=== PATIENT | female | born 1940 | race Caucasian/White ===

== ENCOUNTER 2019-01-10 07:00 | Inpatient (IN) ==
[2019-01-10] MEDS ORDERED: REGLAN ONE (13:48)
[2019-01-10] MEDS ORDERED: PEPCID ONE (13:48)
[2019-01-10] MEDS ORDERED: COLACE ONE (13:48)
[2019-01-10] MEDS ORDERED: LYRICA ONE (13:49)
[2019-01-10] MEDS ORDERED: QUELICIN (DOSE) ONE (13:49)
[2019-01-10] MEDS ORDERED: CELEBREX ONE (13:49)
[2019-01-10] MEDS ORDERED: DIPRIVAN 1% ONE (13:49)
[2019-01-10] MEDS ORDERED: XYLOCAINE-MPF 2% ONE (13:49)
[2019-01-10] MEDS ORDERED: KEFZOL 1 GM/D5W 2 GM/100 ML IVPB ONE (13:49)
[2019-01-10] MEDS ORDERED: ROBINUL ONE ×2 (13:49→16:41)
[2019-01-10] MEDS ORDERED: LR 1,000 ML ONE (13:49)
[2019-01-10] MEDS ORDERED: SUFENTA ONE (14:53)
--- NOTE | 2019-01-10 15:03 | EKG Report ---
Test Performed on : 01/10/2019 2:56:40 PM Test Reason : preop Blood Pressure : / mmHG Vent. Rate : 061 BPM Atrial Rate : 061 BPM P-R Int : 204 ms QRS Dur : 076 ms QT Int : 412 ms P-R-T Axes : 047 014 023 degrees QTc Int : 414 ms Normal sinus rhythm. Normal ECG No previous ECGs available Confirmed by Fidel LANDERS, P.J.M ([id number]) on 01/10/2019 8:01:42 PM
[2019-01-10 15:19] LABS: BASO# 0.02 X1000 (0.0-0.2); BASO% 0.2 % (0.0-0.8); EOS# 0.09 X1000 (0.0-0.7); HEMOGLOBIN 9.8 g/dL (12.0-16.0); IMM GRAN% 1.2 % (0.0-0.5); LYMPH# 1.03 X1000 (1.2-3.4); LYMPH% 11.9 % (20.5-51.1); MCH 30.3 PG (27-31); MCHC 30.6 g/dL (33-37); MCV 99.1 FL (81-99); MONO# 0.67 X1000 (0.11-0.59); MONO% 7.7 % (1.7-9.3); MPV 9.4 FL (7.4-10.4); NEUT# 6.75 X1000 (1.4-6.5); PLT 332 X1000 (130-400); RBC 3.23 XMIL (4.2-5.4); RDW 15.3 % (11.5-14.5); WBC 8.66 X1000 (4.8-10.8)
[2019-01-10] MEDS ORDERED: EXPAREL 1.3% ONE (15:23)
[2019-01-10] MEDS ORDERED: CYKLOKAPRON 1,000 MG/NS 1,000 MG/100 ML IVPB ONE (15:23)
[2019-01-10] MEDS ORDERED: MARCAINE 0.5% PF ONE (15:23)
[2019-01-10] MEDS ORDERED: TORADOL ONE (15:23)
[2019-01-10] MEDS ORDERED: SODIUM CHLORIDE 0.9% ONE (15:23)
[2019-01-10] MEDS ORDERED: DURAMORPH ONE (15:23)
[2019-01-10 15:26] LABS: INR 1.05; PROTIME 13.8 Seconds (11.0-16.0)
[2019-01-10 15:47] LABS: CALCIUM 8.9 mg/dL (8.8-10.2); CREATININE 1.2 mg/dL (0.5-0.9); POTASSIUM 4.7 mmol/L (3.5-5.1)
[2019-01-10] MEDS ORDERED: VANCOMYCIN ONE (16:03)
[2019-01-10] MEDS ORDERED: ZOFRAN ONE (16:48)
[2019-01-10] MEDS ORDERED: DECADRON ONE (16:48)
[2019-01-10 16:52] LABS: URINE SOURCE CATH
[2019-01-10 17:10] LABS: BILIRUBIN URINE NEGATIVE (NEGATIVE); BLOOD URINE NEGATIVE (NEGATIVE); COLOR YELLOW; GLUCOSE URINE NEGATIVE (NEGATIVE); KETONE URINE NEGATIVE (NEGATIVE); LEUKOCYTES URINE NEGATIVE (NEGATIVE); NITRITE URINE NEGATIVE (NEGATIVE); PH URINE 5.5; PROTEIN URINE TRACE mg/dL (NEGATIVE); SP GRAVITY URINE 1.019; TURBIDITY URINE CLEAR (CLEAR); UROBILINOGEN URINE 2 mg/dL (NORMAL)
[2019-01-10 17:11] LABS: UR EPITHELIAL CELLS <10 /HPF (<10); URINE BACTERIA NEGATIVE /HPF; URINE RBC <10 /HPF (<10); URINE WBC <10 /HPF (<10)
[2019-01-10] MEDS: DILAUDID ONE ×5 (17:47→18:25)
[2019-01-10] MEDS ORDERED: NS 1,000 ML ONE (17:54)
[2019-01-10] MEDS ORDERED: OXY IR ONE (17:55)
[2019-01-10] MEDS ORDERED: ZOFRAN PO PRN (18:00)
[2019-01-10] MEDS ORDERED: MORPHINE IV PRN ×3 (18:00)
[2019-01-10] MEDS ORDERED: MILK OF MAGNESIA PO PRN (18:00)
[2019-01-10] MEDS ORDERED: OXY IR PO PRN ×2 (18:00)
--- NOTE | 2019-01-10 19:27 | Diag Imaging Result Doc PS360 ---
EXAM: SHOULDER 1 VIEW LEFT - 01/10/2019 HISTORY: post op reverse total shoulder TECHNIQUE: Portable left shoulder two views COMPARISON: 01/01/2019 FINDINGS: There are postsurgical changes of recent total shoulder prosthesis placement. Alignment of the prosthesis appears satisfactory. There are no complicated features identified. IMPRESSION: Satisfactory postoperative images. Electronically signed by Bakari Gant 01/10/2019 7:25 PM
[2019-01-10] MEDS ORDERED: FLU VACCINE IM ONE (19:40)
[2019-01-10] MEDS ORDERED: PNEUMOVAX 23 IM ONE (20:30)
[2019-01-10] MEDS: COLACE PO SCH (20:52)
[2019-01-10] MEDS: PERIDEX MT SCH (20:52)
[2019-01-10] MEDS: NS 1,000 ML IV SCH (20:52)
[2019-01-10] MEDS: TYLENOL PO SCH ×2 (20:52→23:09)
[2019-01-10] MEDS: NAMENDA PO SCH (20:52)
[2019-01-10] MEDS: VOLTAREN PO SCH (21:35)
[2019-01-10] MEDS: KEFZOL 2 GM/D5W 2 GM/50 ML IVPB IV SCH (23:09)
[2019-01-11] MEDS: TYLENOL PO SCH ×2 (06:15→14:51)
[2019-01-11] MEDS: SYNTHROID PO SCH (06:15)
[2019-01-11 06:24] LABS: HEMATOCRIT 29.3 % (37.0-47.0)
[2019-01-11 06:57] LABS: CALCIUM 8.2 mg/dL (8.8-10.2); CREATININE 1.4 mg/dL (0.5-0.9); POTASSIUM 4.9 mmol/L (3.5-5.1)
--- NOTE | 2019-01-11 07:42 | OPERATIVE NOTE ---
PROCEDURE DATE: 01/10/2019 PREOPERATIVE DIAGNOSIS: Left comminuted proximal humeral fracture. POSTOPERATIVE DIAGNOSIS: Left comminuted proximal humeral fracture. PROCEDURE: Left reverse shoulder arthroplasty with DePuy Delta extend long cemented stem with a 38 + 9 Humeral cup, 38 + 8 mm lateralized eccentric Glenosphere, standard Metaglene. SURGEON: Dajuan Edmond MD FIRST ASSISTANTS: JEREMIAH Mathias, who was necessary for retraction and manipulation of the extremity during the case. SECOND PROJECT MANAGEMENT: Dennis Almendarez RN. ANESTHESIA: General. IV FLUIDS: 1900 mL lactated Ringer's. ESTIMATED BLOOD LOSS: 150 mL. COMPLICATIONS: None. INDICATION: The patient is a 78-year-old female who is status post fall approximately a week and a half ago. She presented. X-rays revealed cystic significantly comminuted proximal humeral fracture with extension in the proximal shaft large butterfly fragments. Given the patient's findings, recommendation to proceed with left reverse shoulder arthroplasty was offered. Risks and benefits of surgery were explained, including the risks of anesthesia, , bleeding, infection, pain, postop stiffness, nerve injury, blood clots, and other imponderables. All questions were answered. The patient and family wished to proceed with surgery. DESCRIPTION OF PROCEDURE: The patient was taken to the operating room and placed supine on the operating table. Once adequate anesthesia was obtained, the patient was placed in semi-Reynoso beach-chair position. The left shoulder was subsequently prepped and draped in usual sterile fashion. A standard deltopectoral incision made with a skin knife. Hemostasis was obtained using electrocautery. The deltopectoral interval was then developed. The fracture was identified. Patient had a large comminuted butterfly fragment which was removed anteriorly. Attention was then turned to the humeral head which was removed without difficulty with sharp dissection. The greater and lesser tuberosity fragments were removed as well, sharply dissected and removed. The patient had a very large butterfly fragment involving the posterior medial aspect as well with extension into the proximal 1/3 of the shaft, had significant soft tissue attached and then was left in place. After this had been performed, attention was then turned to the glenoid. The circumferential dissection was performed with a deep knife. A guide pin was then placed. Reaming was then conducted. The central hole was then dilated. Copious irrigation was performed with antibiotic pulsatile lavage. A standard Metaglene was impacted into position. Two locking screws and 2 nonlocking screws were placed. Good purchase was obtained. The wound was copiously irrigated once again. The 38+ 8 mm lateralized eccentric Glenosphere was then placed with the eccentricity placed inferiorly. After this had been performed, attention was then turned to the shaft. The reaming was then conducted into the shaft in preparation for a size 8 long cemented stem. After this had been performed, the stem was placed into position to determine the appropriate height. C-arm visualization was used to confirm no further extension of the fracture. After this had been confirmed with height, vancomycin was mixed with cement on the back table. Copiously irrigated the intramedullary canal. After cement has been prepared, it was then impacted into the shaft. The stem was then placed in approximately 15 to 20 degrees of retroversion at the appropriate height and held in position while the cement cured. After the cement had cured, C-arm visualization was used to confirm good positioning of the stem. After this had been confirmed, the trial cup size and 38 + 9 humeral cup was determined to be the correct size. The trial cup was removed. The wound was copiously irrigated once again with antibiotic pulsatile lavage. A 38 + 9 humeral cup was placed and the shoulder was reduced, carried through range of motion and good range of motion and good stability. The wound was copiously irrigated once again with antibiotic pulsatile lavage. Exparel was placed in deep soft tissue, as well as subcutaneous tissue. Final irrigation was then performed once again. A 2-0 Vicryl was then used to repair the subcutaneous tissue, followed by a running 2- 0 Prolene. Benzoin and Steri-Strips were applied. Adaptic, 4x4s, ABD pad, and tape were applied to the left shoulder followed by a shoulder immobilizer. All counts were correct. Patient tolerated the procedure well, transferred to the recovery room in stable condition. cc: Dajuan Edmond MD MTDD
[2019-01-11] MEDS: KEFZOL 2 GM/D5W 2 GM/50 ML IVPB IV SCH (08:17)
[2019-01-11] MEDS: COLACE PO SCH ×2 (08:18→20:42)
[2019-01-11] MEDS: COZAAR PO SCH (08:18)
[2019-01-11] MEDS: PERIDEX MT SCH ×2 (08:18→20:42)
[2019-01-11] MEDS: ARICEPT PO SCH (08:18)
[2019-01-11] MEDS: VOLTAREN PO SCH ×2 (08:18→20:42)
[2019-01-11] MEDS: NAMENDA PO SCH ×2 (08:18→20:42)
[2019-01-11] MEDS: REMERON PO SCH (08:18)
--- NOTE | 2019-01-11 11:24 | Diag Imaging Result Doc PS360 ---
EXAM: CHEST-1 VIEW 01/11/2019 HISTORY: rehab TECHNIQUE: AP portable upright at 1112 COMMENT: The inspiration is less optimal than on 11/21/2013. The heart size is the upper limits of normal. There is no definite evidence of acute pulmonary disease. IMPRESSION: Poor inspiration. Electronically signed by Olayinka Jones 01/11/2019 11:22 AM
--- NOTE | 2019-01-11 14:00 | ORTHOPAEDICS PROGRESS NOTE ---
DATE: 01/11/2019 SUBJECTIVE: Ms. Abarca is a 78-year-old female who is status post day 1 of a left reverse total shoulder arthroplasty due to a proximal humerus fracture. She is resting comfortably in bed at this time, and her son is at bedside. She has no complaints at this time, though she is slightly confused which is her baseline due to her underlying dementia. OBJECTIVE: Ms. Abarca is resting in bed at this time. Her dressing is intact to her left shoulder. It is clean and dry. She does have some bruising to her upper arm, which is expected after the surgery. She is complaining of some numbness to her 3rd, 4th, and 5th digits on her left hand. Her hand grasp is strong and equal. She has full range of motion of her hand. LABORATORY: Labs back this morning, and her hemoglobin and hematocrit is 9.0 and 29.3 which is only very slightly decreased from the previous day when it was 9.8 and 32.0. Her creatinine is 1.4 this morning, which is increased slightly from 1.2 yesterday. VITAL SIGNS: Her vital signs were stable through the night last night, and she remained afebrile. She was not tachycardic. ASSESSMENT: Status post day 1 of a left reverse total shoulder arthroplasty due to a proximal humerus fracture. PLAN: The plan is for Ms. Abarca to go to an inpatient rehab facility due to not having anyone at home who can take her to physical therapy as well as her underlying dementia. We are afraid if she goes home without anyone staying with her that she will end up using the shoulder as she has already asked while being here in the hospital about taking the shoulder immobilizer off, and trying to eat her breakfast with this hand. Case Management will discuss with her son today rehab placement. Dictated by JEREMIAH Mathias for Dajuan Edmond MD cc: MD SONYA Romo
[2019-01-11] MEDS: ULTRAM PO PRN ×2 (14:51→23:44)
[2019-01-11] MEDS: NS 1,000 ML IV SCH ×2 (20:47→20:48)
[2019-01-11] MEDS: HALDOL IV PRN (21:48)
[2019-01-12] MEDS: HALDOL IV PRN (01:35)
[2019-01-12] MEDS: TYLENOL PO SCH ×6 (02:41→22:43)
[2019-01-12] MEDS: SYNTHROID PO SCH (06:04)
[2019-01-12 07:07] LABS: HEMATOCRIT 25.7 % (37.0-47.0); HEMOGLOBIN 7.9 g/dL (12.0-16.0)
[2019-01-12 07:24] LABS: CALCIUM 7.7 mg/dL (8.8-10.2); CREATININE 1.3 mg/dL (0.5-0.9); POTASSIUM 4.7 mmol/L (3.5-5.1)
[2019-01-12] MEDS: VOLTAREN PO SCH ×2 (10:37→20:22)
[2019-01-12] MEDS: ARICEPT PO SCH (10:37)
[2019-01-12] MEDS: COLACE PO SCH ×2 (10:38→20:22)
[2019-01-12] MEDS: COZAAR PO SCH (10:38)
[2019-01-12] MEDS: NAMENDA PO SCH ×2 (10:38→20:22)
[2019-01-12] MEDS: REMERON PO SCH (10:39)
[2019-01-12] MEDS: PERIDEX MT SCH ×2 (10:39→20:22)
[2019-01-12] MEDS: NS 1,000 ML IV SCH ×2 (10:45→23:27)
--- NOTE | 2019-01-12 11:37 | DISCHARGE SUMMARY ---
ADMISSION DATE: 01/10/2019 DISCHARGE DATE: 01/13/2019 ADMITTING DIAGNOSIS: Left comminuted proximal humerus fracture. DISCHARGE DIAGNOSIS: Left comminuted proximal humeral fracture, status post right reverse total shoulder arthroplasty. PROCEDURES: On 01/10/2019: Dr. Edmond performed a left reverse total shoulder arthroplasty. HOSPITAL COURSE: Ms. Abarca is a 78-year-old female with past medical history of dementia and hypertension, who presented to the office after an injury that she sustained on 01/01/2019 when she tripped and fell, causing pain to her left arm. An x-ray revealed a severely comminuted fracture of the left proximal humerus. Dr. Edmond discussed with the family and patient doing a left reverse total shoulder arthroplasty, and they wish to proceed at this time. She was taken to the operating room where satisfactory anesthesia was obtained. She tolerated the procedure well and was transferred to the recovery room. After satisfactory recovery, she was transferred to [address] [place] [address] where she has had an uneventful postoperative course. She has been mobilizing with physical therapy while in the hospital. She has up until this point lives at home alone, and her son states that she does not have anyone who is there with her who can help get her to and from therapy, as well as she is having confusion now. It was decided that she would be best served going to inpatient rehab for her physical therapy. LAB STUDIES: Her hemoglobin and hematocrit H has decreased to 7.9 and 25.7; however, patient has remained asymptomatic and she is not tachycardic at this time. Her creatinine has improved from 1.4 yesterday to 1.3 today, so it is trending down. VITAL SIGNS: Her vital signs are most recently temperature of 97.4 degrees, heart rate of 70, blood pressure of 114/87, and she is 96% on room air. DISCHARGE MEDICATIONS: Diclofenac 50 mg p.o. b.i.d., donepezil 10 mg p.o. daily, Synthroid 100 mcg p.o. daily, losartan 50 mg p.o. daily, memantine hydrochloride 10 mg p.o. b.i.d., mirtazapine 30 mg p.o. daily, and Tylenol 500 mg p.o. b.i.d. She will also be given milk of magnesia to use p.r.n., Zofran 4 mg p.o. q. 6 hours p.r.n., and tramadol 50 mg 1 to 2 tablets p.o. q. 6 hours p.r.n. pain. DISCHARGE DISPOSITION: Ms. Abarca will be going to [facility] for inpatient physical therapy. She is going to continue to work on mobilization. She is going to follow up in office once she is discharged from rehabilitation. They can remove her sutures in 10 to 14 days. Signs of postoperative infection will include redness and swelling or discharge from the site. She can shower, but no tub bath. Dictated by JEREMIAH Mathias for Dajuan Edmond MD cc: Dajuan Edmond MD
--- NOTE | 2019-01-12 14:02 | ORTHOPAEDICS PROGRESS NOTE ---
DATE: 01/12/2019 SUBJECTIVE: The patient is a 78-year-old female who is status post left reverse shoulder arthroplasty for comminuted fracture. The patient is currently resting comfortably. She has the expected discomfort. She did experience some confusion yesterday and DC her oxycodone and switched to tramadol. The patient does have some baseline underlying dementia. OBJECTIVE: Patient is awake and alert. The left shoulder wound looks good. There is no sign of infection. She has significant ecchymosis along the left upper arm. She is able to flex and extend all of her fingers. Good capillary refill distally. IMPRESSION: Postoperative day #2 status post left reverse total shoulder arthroplasty. PLAN: At this point, we will continue with mobilization with physical therapy. Training Program Manager has been consulted for discharge planning for inpatient rehabilitation. cc: Dajuan Edmond MD
[2019-01-12] MEDS: ULTRAM PO PRN (22:42)
[2019-01-13] MEDS: TYLENOL PO SCH ×2 (04:25→08:50)
[2019-01-13 06:42] LABS: HEMATOCRIT 26.4 % (37.0-47.0); HEMOGLOBIN 8.2 g/dL (12.0-16.0)
[2019-01-13] MEDS: SYNTHROID PO SCH (06:46)
[2019-01-13 07:58] VITALS: BP 152/61
[2019-01-13] MEDS: COZAAR PO SCH (08:50)
[2019-01-13] MEDS: NAMENDA PO SCH (08:50)
[2019-01-13] MEDS: COLACE PO SCH (08:50)
[2019-01-13] MEDS: VOLTAREN PO SCH (08:50)
[2019-01-13] MEDS: REMERON PO SCH (08:50)
[2019-01-13] MEDS: PERIDEX MT SCH (08:51)
[2019-01-13] MEDS: ARICEPT PO SCH (08:51)
== END 2019-01-13 10:08 | DRG 483 ==
LOC: SURHOLD 12:08 → 4N 16:37
PROVIDERS: ADMIT Orthopaedic Surgery Adult Reconstructive Orthopaedic Surgery; ATTEND Orthopaedic Surgery Adult Reconstructive Orthopaedic Surgery

== ENCOUNTER 2019-01-24 12:48 | Day surgery (SDC) ==
[2019-01-24] MEDS ORDERED: LR 1,000 ML ONE (13:27)
[2019-01-24] MEDS ORDERED: XYLOCAINE-MPF 2% ONE (13:38)
[2019-01-24] MEDS ORDERED: NEO-SYNEPHRINE ONE (13:38)
[2019-01-24] MEDS ORDERED: QUELICIN (DOSE) ONE (13:38)
[2019-01-24] MEDS ORDERED: VANCOMYCIN ONE (15:20)
[2019-01-24] MEDS ORDERED: MARCAINE 0.5% PF ONE (15:20)
[2019-01-24] MEDS ORDERED: GENTAMICIN ONE (15:27)
[2019-01-24] MEDS ORDERED: DIPRIVAN 1% ONE (15:30)
[2019-01-24] MEDS ORDERED: TOBRAMYCIN MISC ONE (15:30)
[2019-01-24] MEDS ORDERED: ZOFRAN ONE (15:49)
[2019-01-24] MEDS ORDERED: ROBINUL ONE (15:58)
[2019-01-24] MEDS ORDERED: OFIRMEV 1000 MG/ISOTONIC SOLN 1,000 MG/100 ML BOTTLE ONE (16:23)
[2019-01-24] MEDS ORDERED: MORPHINE ONE (16:26)
[2019-01-24] MEDS: DILAUDID ONE ×3 (17:22→23:02)
[2019-01-24] MEDS ORDERED: NS 1,000 ML ONE (17:46)
[2019-01-24 17:53] LABS: HEMATOCRIT 29.5 % (37.0-47.0); HEMOGLOBIN 8.8 g/dL (12.0-16.0); MCH 30.2 PG (27-31); MCHC 29.8 g/dL (33-37); MCV 101.4 FL (81-99); MPV 9.9 FL (7.4-10.4); RBC 2.91 XMIL (4.2-5.4); WBC 4.19 X1000 (4.8-10.8)
[2019-01-24 18:06] LABS: AGAP 12; BUN 14 mg/dL (8-22); CALCIUM 8.5 mg/dL (8.8-10.2); CHLORIDE 110 mmol/L (98-107); COSMO 284; CREATININE 0.9 mg/dL (0.5-0.9); ESTIMATED GFR > 60; GLUCOSE 97 mg/dL (70-104); POTASSIUM 4.7 mmol/L (3.5-5.1); SODIUM 142 mmol/L (136-145); TCO2 20 mmol/L (25-35)
[2019-01-24] MEDS: NORCO-7.5 ONE ×2 (18:07→23:03)
--- NOTE | 2019-01-24 18:10 | Diag Imaging Result Doc PS360 ---
EXAM: SHOULDER 1 VIEW LEFT INDICATION: MD order post op shoulder TECHNIQUE: One view COMPARISON: 01/10/2019 FINDINGS: The arthroplasty hardware is in stable position. The moderately displaced fracture fragments at the proximal aspect of the humerus is unchanged. There does appear to be more cemented that has been placed around the prosthesis since the previous study. No new fracture is identified. IMPRESSION: Apparent interval placement of more cement around the prosthetic left shoulder. Stable as compared to the previous study, otherwise. Electronically signed by Solomon Han 01/24/2019 6:07 PM
[2019-01-24] MEDS ORDERED: MARCAINE 0.5% ONE (18:13)
[2019-01-24] MEDS ORDERED: ZOFRAN PO PRN (19:14)
[2019-01-24] MEDS ORDERED: MORPHINE IV PRN (19:14)
[2019-01-24] MEDS ORDERED: VANCOMYCIN IV PER PHARMACY MISC SCH (19:15)
[2019-01-24] MEDS ORDERED: VANCOMYCIN 1,850 MG in NS 500 ML IV ONE (20:00)
[2019-01-24] MEDS ORDERED: NS 1,000 ML IV SCH (20:00)
[2019-01-24] MEDS ORDERED: HALDOL IV PRN (20:58)
[2019-01-24] MEDS: ULTRAM PO PRN (21:12)
[2019-01-25] MEDS: ULTRAM PO PRN (04:04)
[2019-01-25 07:09] LABS: HEMATOCRIT 28.2 % (37.0-47.0); HEMOGLOBIN 8.8 g/dL (12.0-16.0); MCHC 31.2 g/dL (33-37); MCV 102.5 FL (81-99); MPV 10.3 FL (7.4-10.4); RBC 2.75 XMIL (4.2-5.4); WBC 4.19 X1000 (4.8-10.8)
[2019-01-25 07:26] LABS: CALCIUM 9.3 mg/dL (8.8-10.2); POTASSIUM 4.4 mmol/L (3.5-5.1)
[2019-01-25 07:33] VITALS: BP 127/62
--- NOTE | 2019-01-25 08:24 | OPERATIVE NOTE ---
PROCEDURE DATE: 01/24/2019 PREOPERATIVE DIAGNOSIS: Anterior dislocation left reverse shoulder arthroplasty with wound dehiscence. POSTOPERATIVE DIAGNOSIS: Anterior dislocation left reverse shoulder arthroplasty with wound dehiscence. PROCEDURE: 1. Irrigation debridement left shoulder. 2. Open reduction of left reverse shoulder arthroplasty with polyethylene exchange. SURGEON: Dr. Dajuan Edmond. STITCHING MACHINE SETTER: Emily Shelton who was necessary for proper retraction and manipulation of the extremity during the case. SECOND REVENUE CYCLE ANALYST: Dennis Almendarez RN. ANESTHESIA: General. IV FLUIDS: 1000 mL lactated Ringer's. ESTIMATED BLOOD LOSS: 20 mL. COMPLICATIONS: None. INDICATION: The patient is a pleasant 78-year-old female who is 2 weeks status post left reverse total shoulder arthroplasty for a significant comminuted proximal humeral fracture. The patient has been in the [facility]. The patient does have underlying dementia. She was in the office yesterday, and was noted to have an anterior dislocation, unsure of the cause. The patient again does have underlying dementia and there was no reported fall. The patient was noted have drainage from the wound. Given patient's findings, recommendation to proceed with irrigation, debridement and application of antibiotic beads as well as an open reduction. Risks of surgery were explained, including the risks of anesthesia, , bleeding, infection, failure to relieve pain, postop stiffness, nerve injury, blood clots, and other imponderables. All questions answered. Patient and family wished to proceed with surgery. DETAILS OF OPERATION: The patient was taken to the operating room and placed supine on the operating table. Once adequate anesthesia was obtained, the patient placed in semi-Reynoso beach- chair position. The left shoulder was prepped and draped in usual sterile fashion. The existing Prolene suture was then removed. The incision knife was then used in the previous surgical incision. Patient has significant blood tinged fluid which was expressed. Intraoperative cultures were obtained. The humeral stem was noted displaced anteriorly. There was no obvious gross purulence. Debridement was conducted. The stem was then inspected and had no evidence loosening. After this had been confirmed the antibiotic pulsatile lavage was then used, 3000 mL of antibiotic pulsatile lavage used to copiously irrigate the wound. This followed by 1 bottle of Vashe. The polyethylene had some mild loosening. The polyethylene was removed and exchanged. Final inspection revealed the stem to be stable with no evidence of loosening. After this had been performed, a 38 +3 humeral cup was then impacted on the stem. Antibiotic beads were then placed deep in the bed prior to reduction. The reduction was then obtained and the shoulder carried through range of motion, good range of motion and good stability. The remaining antibiotic beads were then placed. After this had been performed, #1 PDS was then used to repair the deep fascia followed by 2-0 Prolene of the skin. Adaptic, 4 x 4s, ABD pad, and tape placed on the left shoulder followed by shoulder immobilizer. All counts were correct. The patient tolerated the procedure well and was transferred to the recovery room in stable condition. cc: Dajuan Edmond MD MTDD
[2019-01-25] MEDS ORDERED: PERIDEX MT SCH (09:00)
[2019-01-25] MEDS ORDERED: DOXYCYCLINE PO SCH (09:30)
--- NOTE | 2019-01-25 11:34 | ORTHOPAEDICS PROGRESS NOTE ---
DATE: 01/25/2019 SUBJECTIVE: The patient is a pleasant, 78-year-old female who is 1 day status post I and D, and application antibiotic beads, as well as open reduction for a left reverse shoulder arthroplasty. She is currently resting comfortably this morning. OBJECTIVE: On physical exam, patient is afebrile. Her wound looks good. There is no obvious drainage this morning or signs of infection. She is able to flex and extend all of her fingers. Her labs from last evening, WBC 4.19, hemoglobin is 8.8, hematocrit is 29.5, platelets are 320,000. Intraoperative cultures were obtained. Gram stain was negative. Labs are pending for this morning. IMPRESSION: Postoperative day #1 status post incision and drainage, application of antibiotic beads, and open reduction for dislocation of left reverse total shoulder arthroplasty. PLAN: At this point, the patient will continue with her IV antibiotics. We will await her initial culture results and we will discharge later today if these are negative, back to [facility]. cc: Dajuan Edmond MD
--- NOTE | 2019-01-25 12:26 | DISCHARGE SUMMARY ---
ADMISSION DATE: 01/24/2019 DISCHARGE DATE: ADMITTING DIAGNOSIS: Status post left reverse total shoulder arthroplasty with shoulder dislocation. DISCHARGE DIAGNOSIS: Status post left reverse total shoulder arthroplasty, status post open reduction of shoulder dislocation. PROCEDURE: On 01/24/2019, Dr. Edmond performed an I&D, and application of antibiotic beads as well as an open reduction for a dislocated left reverse shoulder arthroplasty. HOSPITAL COURSE: Ms. Abarca was taken for her procedure yesterday where Dr. Edmond performed an I&D as well as application of antibiotic beads as well as an open reduction for a left reverse shoulder arthroplasty dislocation. Patient tolerated this well. She was placed on vancomycin and admitted upstairs overnight until the results of her Gram stain and culture were reported. It was determined this morning that she is able to go back to rehab. If we have to continue her on IV antibiotics, this will be done there. Her Gram stain was negative, and her preliminary 24 hour wound culture shows no growth. DISCHARGE MEDICATIONS: 1. Doxycycline 100 mg p.o. b.i.d. x10 days. 2. Tylenol 500 mg p.o. b.i.d. 3. Diclofenac 50 mg p.o. b.i.d. 4. Benazepril 10 mg p.o. daily. 5. Synthroid 100 mcg p.o. daily. 6. Losartan 50 mg p.o. daily. 7. Memantine 10 mg p.o. b.i.d. 8. Mirtazapine 30 mg p.o. daily. 9. Zofran 4 mg p.o. q.6 hours p.r.n. 10. Tramadol 100 mg p.o. q.6 hours p.r.n. pain. DISCHARGE DISPOSITION: Ms. Abarca will be going back to [facility] where she was previously staying. Her son is going to transport her. We will take her off her IV antibiotics at this time, and place her on doxycycline that she will continue in rehab. We will have her continue on doxycycline 100 mg p.o. b.i.d. for 10 days. We will see her back in clinic for follow-up on 02/06/2019 at 8:40 in the morning. Dictated by JEREMIAH Mathias for Dajuan Edmond MD cc: Dajuan Edmond MD MTDD
[2019-01-26] MEDS ORDERED: VANCOMYCIN 1,600 MG in NS 250 ML IV SCH (08:00)
== END 2019-01-25 12:44 | disposition home or self-care (01) ==
LOC: OR 12:48 → 4N 12:48 → OR 01-25 12:44
PROVIDERS: ATTEND Orthopaedic Surgery Adult Reconstructive Orthopaedic Surgery

== ENCOUNTER 2019-01-31 07:41 | Inpatient (IN) ==
[~2019-01-31 07:41] MED LIST: DIPRIVAN 1% ONE; FENTANYL ONE
[2019-01-31] MEDS ORDERED: ZOFRAN ONE (07:42)
[2019-01-31] MEDS ORDERED: QUELICIN (DOSE) ONE (07:44)
[2019-01-31] MEDS ORDERED: ZEMURON ONE (07:44)
[2019-01-31] MEDS ORDERED: KEFZOL 1 GM/D5W 2 GM/100 ML IVPB ONE (08:28)
[2019-01-31] MEDS ORDERED: LR 1,000 ML ONE (08:28)
[2019-01-31] MEDS ORDERED: NEOSPORIN G.U. IRRIGANT ONE (09:24)
[2019-01-31] MEDS ORDERED: MARCAINE 0.25% PF ONE (09:24)
[2019-01-31 10:49] LABS: URINE SOURCE CATH
[2019-01-31 10:59] LABS: BILIRUBIN URINE NEGATIVE (NEGATIVE); BLOOD URINE NEGATIVE (NEGATIVE); COLOR YELLOW; GLUCOSE URINE NEGATIVE (NEGATIVE); KETONE URINE NEGATIVE (NEGATIVE); LEUKOCYTES URINE NEGATIVE (NEGATIVE); NITRITE URINE NEGATIVE (NEGATIVE); PH URINE 5.5; PROTEIN URINE NEGATIVE (NEGATIVE); SP GRAVITY URINE 1.015; TURBIDITY URINE CLEAR (CLEAR); UROBILINOGEN URINE NORMAL (NORMAL)
[2019-01-31 11:01] LABS: UR EPITHELIAL CELLS <10 /HPF (<10); URINE BACTERIA NEGATIVE /HPF; URINE RBC <10 /HPF (<10); URINE WBC <10 /HPF (<10)
[2019-01-31] MEDS: DILAUDID ONE ×4 (11:10→11:44)
[2019-01-31] MEDS ORDERED: NS 1,000 ML ONE (11:28)
[2019-01-31] MEDS ORDERED: EPHEDRINE ONE (11:59)
[2019-01-31] MEDS ORDERED: ROBINUL ONE (11:59)
[2019-01-31] MEDS ORDERED: ULTRAM ONE (12:07)
[2019-01-31] MEDS ORDERED: ZOFRAN PO PRN (12:10)
[2019-01-31] MEDS ORDERED: ULTRAM PO PRN (12:11)
[2019-01-31] MEDS ORDERED: DILAUDID IV PRN (12:12)
[2019-01-31] MEDS: NS 1,000 ML IV SCH (13:00)
--- NOTE | 2019-01-31 15:14 | OPERATIVE NOTE ---
PROCEDURE DATE: 01/31/2019 PREOPERATIVE DIAGNOSIS: Recurrent dislocation, left reverse shoulder arthroplasty. POSTOPERATIVE DIAGNOSIS: Recurrent dislocation, left reverse shoulder arthroplasty. PROCEDURE PERFORMED: Irrigation, debridement, and removal of left reverse shoulder arthroplasty. SURGEON: Dajuan Edmond M.D. WOODWORKING CRAFTSMAN: Dennis Almendarez RN. ANESTHESIA: General. IV FLUIDS: 800 mL of lactated Ringer. ESTIMATED BLOOD LOSS: 30 mL. COMPLICATIONS: None. INDICATION: The patient is a pleasant, 78-year-old female, who is status post left reverse shoulder arthroplasty on 01/10/2019 for a comminuted proximal humeral shaft fracture. The patient has underlying dementia, and sustained a dislocation last week and underwent open reduction and irrigation, debridement, and application of antibiotic beads. The patient remained noncompliant, and dislocated once again over the weekend. I had a long discussion with the patient's family, and given her underlying noncompliance with her underlying dementia and recurrent instability, recommendation to proceed with removal of the implants was offered. Risks and benefits of surgery were explained, including the risks of anesthesia, , bleeding, infection, failure to relieve pain, postoperative stiffness, nerve injury, blood clots, and other imponderables. All questions were answered. The patient's family agree with treatment appeared DETAILS OF OPERATION: The patient was taken to the operating room and underwent general anesthesia. After adequate anesthesia was obtained, she was placed in semi- Reynoso beach-chair position. The left shoulder was subsequently prepped and draped in the usual sterile fashion. Remaining sutures were removed. The patient did have open wound dehiscence anteriorly with some drainage. Intraoperative cultures were obtained. The humeral stem was dislocated anteriorly just under the skin. Attention was turned to the humeral stem, and it was removed without difficulty. After this had been performed, the glenosphere, along with the metaglene and all screws were removed. After removing all of the hardware, attention was then turned to the proximal humerus, where she had a sharp spike, which was rongeured to smoothly contour this area. After removing all of the implants, wound was copiously irrigated with 3000 mL of pulsatile lavage. After that had been performed, #1 Vicryl was used to repair the deep fascia, followed by a 2-0 Prolene in the skin. Then, 0.25% Marcaine with epinephrine was injected locally. Adaptic, sterile 4 x 4's, ABD pad, and envelope sling were applied to the left upper extremity. The patient tolerated the procedure well, and was transferred to the recovery room in stable condition. cc: MD SONYA Romo
[2019-01-31] MEDS: KEFZOL 1 GM/D5W 1 GM/50 ML IVPB IV SCH (18:47)
[2019-01-31] MEDS: PERIDEX MT SCH (19:53)
[2019-01-31] MEDS: TYLENOL PO SCH (19:53)
[2019-01-31] MEDS: NAMENDA PO SCH (19:53)
[2019-01-31] MEDS: ULTRAM PO PRN (19:54)
[2019-02-01] MEDS: KEFZOL 1 GM/D5W 1 GM/50 ML IVPB IV SCH ×2 (00:06→03:10)
[2019-02-01] MEDS: NAMENDA PO SCH ×2 (03:11→10:12)
[2019-02-01] MEDS: VOLTAREN PO SCH ×2 (03:12→10:10)
[2019-02-01] MEDS: ULTRAM PO PRN (03:44)
[2019-02-01] MEDS ORDERED: SYNTHROID PO SCH (07:00)
[2019-02-01] MEDS: NS 1,000 ML IV SCH (08:47)
[2019-02-01] MEDS: TYLENOL PO SCH ×2 (08:47→10:10)
[2019-02-01] MEDS: PERIDEX MT SCH ×2 (08:48→10:11)
[2019-02-01] MEDS ORDERED: COZAAR PO SCH (09:00)
[2019-02-01] MEDS ORDERED: ARICEPT PO SCH (09:00)
[2019-02-01] MEDS ORDERED: REMERON PO SCH (09:00)
[2019-02-01 11:42] VITALS: BP 146/73
--- NOTE | 2019-02-01 11:42 | ORTHOPAEDICS PROGRESS NOTE ---
DATE: 02/01/2019 SUBJECTIVE: The patient is a pleasant, 78-year-old female who is postop day #1 status post I and D of the left shoulder with removal of implants of left reverse shoulder arthroplasty implants. Patient has underlying dementia and has had confusion through the night. She is confused this morning as well. OBJECTIVE: On physical examination of the patient's left shoulder, her wound looks good. There is a small amount of bleeding. She is able flex and extend all of her fingers. Good capillary refill distally. Her labs are pending. Her intraoperative Gram stain from yesterday was negative. Cultures are pending. IMPRESSION: Postoperative day #1 status post incision and drainage, and removal of left reverse shoulder arthroplasty implants. PLAN: At this point, we will await culture results before discharging back to rehab. We will have her follow up in the office in 3 weeks. Remove sutures in 13 days. cc: Dajuan Edmond MD MTDD
--- NOTE | 2019-02-01 11:51 | DISCHARGE SUMMARY ---
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 DISCHARGE DIAGNOSIS: Status post irrigation and debridement of left shoulder with removal of hardware of left reverse total shoulder arthroplasty. PROCEDURE PERFORMED: On 01/31/2019, Dr. Edmond performed an irrigation and debridement of left shoulder with removal of hardware. HOSPITAL COURSE: Ms. Abarca was admitted to the hospital yesterday after her procedure. She has had an uneventful hospital course and will be going back to the rehab facility where she was staying, today. The reason for the irrigation and debridement, and removal of hardware is due to the fact that this is Ms. Abarca's second dislocation after having a left reverse shoulder arthroplasty on 01/10/2019. She first had an open reduction with application of antibiotic beads on 01/24/2019 for a dislocation. She then dislocated for a second time on 01/27/2019. She has been at her baseline mental status while in the hospital. Because of her altered mental status, she will be returning to [facility] facility.. Her son will be transporting her today. LABS: a UA is negative. Gram stain is negative. Cultures have not resulted as of yet.. DISCHARGE MEDICATIONS: Include Tylenol 500 mg b.i.d., diclofenac 50 mg b.i.d., benazepril 10 mg p.o. daily, Synthroid 100 mcg p.o. daily, losartan 50 mg p.o. daily, memantine 10 mg p.o. b.i.d., mirtazapine 30 mg p.o. daily, tramadol 50 mg 1 to 2 tablets p.o. q.6 hours p.r.n. pain, doxycycline 100 mg p.o. b.i.d., and Zofran 4 mg p.o. q.6 hours p.r.n. DISCHARGE DISPOSITION: Ms. Abarca will be going back to [facility] where she has been staying. She will continue to be nonweightbearing on that left upper extremity. She will follow up in office in 3 weeks from rehab. We anticipate that her son will be bringing her. Her sutures can be removed in 10 to 14 days. She will not require DVT prophylaxis at this time. If there are any questions or concerns, the rehab facility can call the office. Dictated by JEREMIAH Mathias for Dajuan Edmond MD cc: Dajuan Edmond MD [facility]
== END 2019-02-01 13:25 | DRG 496 ==
LOC: OR 07:41 → 4N 07:41 → OBSVTOIN 10:11 → 4N 20:57
PROVIDERS: ADMIT Orthopaedic Surgery Adult Reconstructive Orthopaedic Surgery; ATTEND Orthopaedic Surgery Adult Reconstructive Orthopaedic Surgery